=== PATIENT | female | born 1955 | race Two or more races ===

== ENCOUNTER 2018-06-13 19:02 | Inpatient (IN) | payer OTHER ==
[~2018-06-13] VITALS: Ht 172.7 cm; Wt 87.8 kg
[2018-06-13 19:58] LABS: Urine Bacteria NONE SEEN /hpf (None Seen); Urine Blood TRACE /uL (Negative); Urine Hyaline Cast FEW /lpf (0 - 2); Urine Specific Gravity 1.015 (1.001-1.035); Urine WBC 1 /hpf (0 - 5)
[2018-06-13 19:59] LABS: Basophils # (auto) 0.1 uL; Basophils % (auto) 0.3 % (0.0-2.0); Eosinophils # (auto) 0 uL; Hematocrit 49.5 % (36.0-46.0); Hemoglobin 16.9 g/dL (12.2-16.2); Lymphocytes # (auto) 1.2 uL; Lymphocytes % (auto) 6.2 % (10.0-50.0); Mean Corpuscular Hemoglobin 31.5 pg (28.0-32.0); Mean Corpuscular Hgb Conc. 34.1 g/dL (32.0-36.0); Mean Corpuscular Volume 92.2 fL (80.0-100.0); Monocytes # (auto) 0.5 uL; Monocytes % (auto) 2.8 % (0.0-12.0); Neutrophils # (auto) 17.9 uL; Neutrophils % (auto) 90.7 % (37.0-80.0); Platelet Count (auto) 282 10^3/uL (140-450); Red Blood Cells 5.37 10^6/uL (4.0-5.20); Red Cell Distribution Width 13.1 % (11.8-14.3); White Blood Cell 19.7 10^3/uL (4.4-10.8)
[2018-06-13 20:08] LABS: Albumin 4.2 g/dL (3.4-5.0); Anion Gap 14 (5-15); BUN/Creatinine Ratio 14.6; Blood Alcohol < 3.0 mg/dL (0-5); Blood Urea Nitrogen 12 mg/dL (7-18); Calcium 8.8 mg/dL (8.5-10.1); Carbon Dioxide 23 mmol/L (21-32); Chloride 97 mmol/L (98-107); GFR African American 91 mL/min; GFR Non-African American 76 mL/min; Glucose 135 mg/dL (74-106); Potassium 3.3 mmol/L (3.5-5.1); Sodium 134 mmol/L (136-145)
[2018-06-13 20:11] LABS: Amphetamine Screen, Urine NEGATIVE (NEGATIVE); Barbiturate Scree,Urine NEGATIVE (NEGATIVE); Benzodiazephine Screen, Urine NEGATIVE (NEGATIVE); Cannabinoid Screen, Urine NEGATIVE (NEGATIVE); Cocaine Screen, Urine NEGATIVE (NEGATIVE); Phencyclidine Screen, Urine NEGATIVE (NEGATIVE)
[2018-06-13 20:15] LABS: Opiate Scree,Urine NEGATIVE (NEGATIVE)
[2018-06-13] MEDS ORDERED: SODIUM CHLORIDE 0.9% 1,000 ML IV ONE (20:15)
[2018-06-13 20:17] LABS: Alanine Aminotransferase 50 U/L (13-56); Alkaline Phosphatase 114 U/L (45-117); Aspartate Aminotransferase 61 U/L (15-37); Bilirubin, Total 0.7 mg/dL (0.2-1.0); Total Protein 8.6 g/dL (6.4-8.2)
[2018-06-13] MEDS ORDERED: METOPROLOL TARTRATE 1MG/1ML-5ML VIAL IV ONE (20:30)
[2018-06-13 20:44] LABS: Salicylate < 1.7 mg/dL (2.8-20.0)
[2018-06-13 20:55] LABS: Acetaminophen < 2.0 ug/mL (10-30)
[2018-06-13] MEDS ORDERED: THIAMINE INJ 100 MG, MULTIPLE VITAMIN 10 ML, FOLIC ACID 1 MG, MAGNESIUM SULF SDV 50% 8 ... IV ONE ×5 (21:00)
[2018-06-14] MEDS ORDERED: cefTRIAXone 1GM/50ML D5W 50 ML IV ONE (02:30)
[2018-06-14] MEDS ORDERED: ONDANSETRON HCL 4 MG/2 ML VIAL IV PRN (03:15)
[2018-06-14] MEDS ORDERED: hydrALAZINE HCL 20 MG/ML VL IV ONE (03:45)
[2018-06-14] MEDS ORDERED: MORPHINE SULFATE 4 MG/ML SYR/VIAL IV PRN (03:45)
[2018-06-14] MEDS ORDERED: SODIUM CHLORIDE 0.9% 500 ML IV ONE (03:45)
[2018-06-14] MEDS ORDERED: NITROGLYCERIN 0.4 MG SL TAB SL PRN (03:45)
[2018-06-14 04:40] VITALS: BP 156/80
[2018-06-14] MEDS ORDERED: OME20T PO (06:18)
[2018-06-14] MEDS ORDERED: CYCL5TAB PO (06:18)
[2018-06-14] MEDS ORDERED: IBUP600T27 PO (06:18)
[2018-06-14] MEDS ORDERED: BENZ100C97 PO (06:18)
[2018-06-14] MEDS ORDERED: CHRO200C7 PO (06:18)
[2018-06-14] MEDS: SODIUM CHLORIDE 0.9% 1,000 ML IV SCH ×2 (06:47→17:11)
[2018-06-14 08:00] VITALS: BP 153/78
[2018-06-14] MEDS: FOLIC ACID 1 MG TAB PO SCH (10:00)
[2018-06-14] MEDS: THIAMINE HCL 100 MG TAB PO SCH (10:00)
[2018-06-14] MEDS: FAMOTIDINE 20 MG TAB PO SCH ×2 (10:00→20:57)
[2018-06-14 11:53] VITALS: BP 157/85
[2018-06-14 12:47] LABS: Basophils # (auto) 0.1 uL; Basophils % (auto) 0.9 % (0.0-2.0); Eosinophils # (auto) 0 uL; Eosinophils % (auto) 0.1 % (0.0-7.0); Hemoglobin 15.7 g/dL (12.2-16.2); Lymphocytes # (auto) 2.1 uL; Lymphocytes % (auto) 19.2 % (10.0-50.0); Mean Corpuscular Hemoglobin 31.3 pg (28.0-32.0); Mean Corpuscular Hgb Conc. 33.5 g/dL (32.0-36.0); Mean Corpuscular Volume 93.5 fL (80.0-100.0); Monocytes # (auto) 0.5 uL; Monocytes % (auto) 4.9 % (0.0-12.0); Neutrophils # (auto) 8.3 uL; Neutrophils % (auto) 74.9 % (37.0-80.0); Nucleated Red Blood Cells % 0.1 %; Platelet Count (auto) 242 10^3/uL (140-450); Red Blood Cells 5.02 10^6/uL (4.0-5.20); Red Cell Distribution Width 13.7 % (11.8-14.3); White Blood Cell 11.1 10^3/uL (4.4-10.8)
[2018-06-14 13:11] LABS: Albumin 3.4 g/dL (3.4-5.0); Potassium 3.6 mmol/L (3.5-5.1)
[2018-06-14 13:14] LABS: BUN/Creatinine Ratio 11.5; Bilirubin, Total 0.5 mg/dL (0.2-1.0)
[2018-06-14] MEDS ORDERED: LABETALOL HCL 200 MG TAB PO ONE (14:00)
[2018-06-14] MEDS: LACTULOSE 20Gm/30ML SOLN PO SCH ×3 (14:22→20:56)
[2018-06-14 15:52] VITALS: BP 153/97
[2018-06-14 20:51] VITALS: BP 135/94
[2018-06-14] MEDS: LABETALOL HCL 200 MG TAB PO SCH (20:57)
[2018-06-14] MEDS: chlordiazePOXIDE HCL 5 MG CAP PO PRN (20:58)
[2018-06-14] MEDS ORDERED: cefTRIAXone 1GM/50ML D5W 50 ML IV SCH (22:00)
[2018-06-14 23:30] VITALS: BP 147/100
[2018-06-15] MEDS: LACTULOSE 20Gm/30ML SOLN PO SCH ×7 (01:30→20:34)
[2018-06-15] MEDS: SODIUM CHLORIDE 0.9% 1,000 ML IV SCH ×2 (03:04→14:07)
[2018-06-15 04:00] VITALS: BP 165/95
[2018-06-15 05:31] LABS: Basophils # (auto) 0.1 uL; Basophils % (auto) 0.6 % (0.0-2.0); Eosinophils # (auto) 0 uL; Eosinophils % (auto) 0.3 % (0.0-7.0); Hematocrit 40.3 % (36.0-46.0); Hemoglobin 13.8 g/dL (12.2-16.2); Lymphocytes # (auto) 2.8 uL; Lymphocytes % (auto) 34.7 % (10.0-50.0); Mean Corpuscular Hemoglobin 31.5 pg (28.0-32.0); Mean Corpuscular Hgb Conc. 34.2 g/dL (32.0-36.0); Mean Corpuscular Volume 92.3 fL (80.0-100.0); Monocytes # (auto) 0.5 uL; Monocytes % (auto) 5.9 % (0.0-12.0); Neutrophils # (auto) 4.8 uL; Neutrophils % (auto) 58.5 % (37.0-80.0); Platelet Count (auto) 206 10^3/uL (140-450); Red Blood Cells 4.37 10^6/uL (4.0-5.20); Red Cell Distribution Width 13.9 % (11.8-14.3); White Blood Cell 8.2 10^3/uL (4.4-10.8)
[2018-06-15 05:43] LABS: Albumin 3.2 g/dL (3.4-5.0); Calcium 8.1 mg/dL (8.5-10.1); Potassium 3.2 mmol/L (3.5-5.1)
[2018-06-15 05:46] LABS: BUN/Creatinine Ratio 13.3; Bilirubin, Total 0.4 mg/dL (0.2-1.0); Total Protein 6.8 g/dL (6.4-8.2)
[2018-06-15] MEDS: LABETALOL HCL 200 MG TAB PO SCH ×2 (07:32→20:35)
[2018-06-15 07:55] VITALS: BP 185/112
[2018-06-15] MEDS: FAMOTIDINE 20 MG TAB PO SCH ×2 (09:19→20:35)
[2018-06-15] MEDS: FOLIC ACID 1 MG TAB PO SCH (09:19)
[2018-06-15] MEDS: THIAMINE HCL 100 MG TAB PO SCH (09:20)
[2018-06-15] MEDS: chlordiazePOXIDE HCL 5 MG CAP PO PRN ×3 (09:20→23:36)
[2018-06-15] MEDS ORDERED: POTASSIUM CHL 20 Meq TABLET PO ONE (09:45)
[2018-06-15] MEDS ORDERED: cloNIDine HCL 0.1 MG TAB PO SCH (10:00)
[2018-06-15 11:35] VITALS: BP 143/97
[2018-06-15 15:50] VITALS: BP 172/113
[2018-06-15] MEDS ORDERED: cloNIDine HCL 0.1 MG TAB PO ONE (17:30)
[2018-06-15] MEDS ORDERED: MEPERIDINE HCL (25 MG/ML) 1ML VIAL IV ONE (17:30)
[2018-06-15 19:37] VITALS: BP_SYST 177; BP_SYST 189; BP_DIAS 122; BP_DIAS 123
[2018-06-15] MEDS: cloNIDine HCL 0.1 MG TAB PO SCH (20:34)
[2018-06-15] MEDS: ACETAMINOPHEN 325 MG TAB PO PRN (23:36)
[2018-06-16] VITALS (9 sets, daily range): BP systolic 122–156; BP diastolic 70–98
[2018-06-16] MEDS: LACTULOSE 20Gm/30ML SOLN PO SCH ×6 (02:00→22:14)
[2018-06-16] MEDS: FOLIC ACID 1 MG TAB PO SCH (09:26)
[2018-06-16] MEDS: chlordiazePOXIDE HCL 5 MG CAP PO PRN (09:26)
[2018-06-16] MEDS: FAMOTIDINE 20 MG TAB PO SCH ×2 (09:27→22:14)
[2018-06-16] MEDS: THIAMINE HCL 100 MG TAB PO SCH (09:27)
[2018-06-16] MEDS: cloNIDine HCL 0.1 MG TAB PO SCH ×2 (10:00→22:14)
[2018-06-16] MEDS: LABETALOL HCL 200 MG TAB PO SCH ×2 (10:00→22:14)
[2018-06-16] MEDS: SODIUM CHLORIDE 0.9% 1,000 ML IV SCH (11:00)
[2018-06-16] MEDS: ACETAMINOPHEN 325 MG TAB PO PRN ×2 (11:01→18:04)
[2018-06-16] MEDS ORDERED: FLEET MINERAL OIL ENEMA 133 ML PR ONE (14:00)
[2018-06-16] MEDS: IPRATROPIUM BROM 0.5 MG/2.5ML INH SOL NEB SCH ×2 (20:36→22:44)
[2018-06-17] MEDS: LACTULOSE 20Gm/30ML SOLN PO SCH ×6 (02:00→22:00)
[2018-06-17] MEDS: IPRATROPIUM BROM 0.5 MG/2.5ML INH SOL NEB SCH ×6 (02:00→23:02)
[2018-06-17] MEDS: ACETAMINOPHEN 325 MG TAB PO PRN ×2 (06:35→18:56)
[2018-06-17 06:40] LABS: Basophils # (auto) 0.1 uL; Eosinophils # (auto) 0.2 uL; Eosinophils % (auto) 1.3 % (0.0-7.0); Hematocrit 43.1 % (36.0-46.0); Hemoglobin 14.6 g/dL (12.2-16.2); Lymphocytes # (auto) 1.8 uL; Lymphocytes % (auto) 12.8 % (10.0-50.0); Mean Corpuscular Hemoglobin 31.7 pg (28.0-32.0); Mean Corpuscular Hgb Conc. 33.8 g/dL (32.0-36.0); Mean Corpuscular Volume 93.9 fL (80.0-100.0); Monocytes # (auto) 0.7 uL; Monocytes % (auto) 5.1 % (0.0-12.0); Neutrophils # (auto) 10.9 uL; Neutrophils % (auto) 79.8 % (37.0-80.0); Nucleated Red Blood Cells % 0.1 %; Platelet Count (auto) 202 10^3/uL (140-450); Red Blood Cells 4.59 10^6/uL (4.0-5.20); Red Cell Distribution Width 13.8 % (11.8-14.3); White Blood Cell 13.7 10^3/uL (4.4-10.8)
[2018-06-17 07:05] LABS: Potassium 3.4 mmol/L (3.5-5.1)
[2018-06-17 07:10] LABS: Albumin 3.1 g/dL (3.4-5.0); Calcium 7.9 mg/dL (8.5-10.1)
[2018-06-17 07:23] LABS: Bilirubin, Total 0.6 mg/dL (0.2-1.0); Total Protein 6.6 g/dL (6.4-8.2)
[2018-06-17 08:49] VITALS: BP 127/83
[2018-06-17] MEDS: FOLIC ACID 1 MG TAB PO SCH (09:08)
[2018-06-17] MEDS: AZITHROMYCIN 500MG/ 250ML 250 ML IV SCH (09:09)
[2018-06-17] MEDS: ASPirin-EC 81 mg tab PO SCH (09:10)
[2018-06-17] MEDS: THIAMINE HCL 100 MG TAB PO SCH (09:10)
[2018-06-17] MEDS: FAMOTIDINE 20 MG TAB PO SCH ×2 (09:10→22:06)
[2018-06-17] MEDS: LABETALOL HCL 200 MG TAB PO SCH ×2 (09:12→22:07)
[2018-06-17] MEDS: cloNIDine HCL 0.1 MG TAB PO SCH ×2 (09:30→22:06)
[2018-06-17] MEDS: SODIUM CHLORIDE 0.9% 1,000 ML IV SCH (11:00)
[2018-06-17 13:00] VITALS: BP 128/72
[2018-06-17 16:45] VITALS: BP 134/77
[2018-06-17 20:00] VITALS: BP 148/79
[2018-06-17 22:05] VITALS: BP 148/79
[2018-06-18] MEDS: LACTULOSE 20Gm/30ML SOLN PO SCH ×6 (02:00→22:11)
[2018-06-18] MEDS: IPRATROPIUM BROM 0.5 MG/2.5ML INH SOL NEB SCH ×6 (03:05→22:10)
[2018-06-18 05:23] VITALS: BP 117/82
[2018-06-18] MEDS: ACETAMINOPHEN 325 MG TAB PO PRN (06:30)
[2018-06-18 08:00] VITALS: BP 135/87
[2018-06-18 08:21] VITALS: BP 140/89
[2018-06-18 10:48] LABS: Cholesterol 110 mg/dL (< 200); HDL Cholesterol 48 mg/dL (40-59); LDL Cholesterol 62 mg/dL (< 100); Triglycerides 63 mg/dL (< 150)
[2018-06-18 12:05] VITALS: BP 115/44
[2018-06-18] MEDS: FOLIC ACID 1 MG TAB PO SCH (12:12)
[2018-06-18] MEDS: FAMOTIDINE 20 MG TAB PO SCH ×2 (12:12→22:13)
[2018-06-18] MEDS: ASPirin-EC 81 mg tab PO SCH (12:12)
[2018-06-18] MEDS: THIAMINE HCL 100 MG TAB PO SCH (12:13)
[2018-06-18] MEDS: LABETALOL HCL 200 MG TAB PO SCH ×2 (12:13→22:13)
[2018-06-18] MEDS: cloNIDine HCL 0.1 MG TAB PO SCH ×2 (12:14→22:12)
[2018-06-18] MEDS: AZITHROMYCIN 500MG/ 250ML 250 ML IV SCH (12:14)
[2018-06-18] MEDS: SODIUM CHLORIDE 0.9% 1,000 ML IV SCH (12:15)
[2018-06-18 15:00] VITALS: BP 144/99
[2018-06-18] MEDS: chlordiazePOXIDE HCL 5 MG CAP PO PRN (15:32)
[2018-06-18] MEDS ORDERED: ATORVASTATIN 20 MG TAB PO SCH (22:00)
[2018-06-18 22:09] VITALS: BP 150/84
[2018-06-19] MEDS: LACTULOSE 20Gm/30ML SOLN PO SCH ×4 (02:00→15:30)
[2018-06-19] MEDS: IPRATROPIUM BROM 0.5 MG/2.5ML INH SOL NEB SCH ×4 (02:16→14:01)
[2018-06-19 05:18] VITALS: BP 124/68
[2018-06-19 09:00] VITALS: BP 141/83
[2018-06-19] MEDS: AZITHROMYCIN 500MG/ 250ML 250 ML IV SCH (09:39)
[2018-06-19] MEDS: THIAMINE HCL 100 MG TAB PO SCH (09:39)
[2018-06-19] MEDS: FOLIC ACID 1 MG TAB PO SCH (09:39)
[2018-06-19] MEDS: FAMOTIDINE 20 MG TAB PO SCH (09:40)
[2018-06-19] MEDS: ASPirin-EC 81 mg tab PO SCH (09:40)
[2018-06-19] MEDS: LABETALOL HCL 200 MG TAB PO SCH (09:40)
[2018-06-19] MEDS: SODIUM CHLORIDE 0.9% 1,000 ML IV SCH (11:00)
[2018-06-19] MEDS: cloNIDine HCL 0.1 MG TAB PO SCH (12:07)
[2018-06-19 13:00] VITALS: BP 123/71
[2018-06-19] MEDS: ACETAMINOPHEN 325 MG TAB PO PRN (15:11)
[2018-06-19 15:22] VITALS: BP 123/71
[2018-06-19 17:00] VITALS: BP 149/86
[2018-06-19] MEDS ORDERED: ALUM & MAG HYDROX-SIMETH LIQ(MAALOX) 30 ML PO ONE (17:45)
== END 2018-06-19 18:23 | disposition home or self-care (01) | DRG 720 ==
LOC: ER 19:02 → DOU IN ICU 06-14 03:39 → TELE-CENTR 06-16 16:55 → TELE-WESTW 06-18 15:56 → WEST WING 06-19 13:07
PROVIDERS: ADMIT Nurse Practitioner; ATTEND Internal Medicine
DX: A41.9 Sepsis, unspecified organism (principal); J96.00 Acute respiratory failure, unspecified whether with hypoxia or hypercapnia; G92 Toxic encephalopathy; E87.1 Hypo-osmolality and hyponatremia; K56.7 Ileus, unspecified; E11.65 Type 2 diabetes mellitus with hyperglycemia; E86.0 Dehydration; E87.6 Hypokalemia; M48.02 Spinal stenosis, cervical region; F10.229 Alcohol dependence with intoxication, unspecified; F31.9 Bipolar disorder, unspecified; M47.892 Other spondylosis, cervical region
CPT/HCPCS: 36415; 36600; 51702; 70450; 70551; 71045; 72125; 74176; 80053; 80061; 80307; 80320; 80329; 81001; 82140; 82805; 82962; 83036; 83880; 85025; 87040; 87081; 93005; 94640; 94761; 95819; 96361; 96365; 96367; 96375; 97163; G0378; J0696